=== PATIENT | female | born 1940 | race Caucasian/White ===

== ENCOUNTER 2020-04-23 06:41 | Emergency (ER) | payer MEDICARE, OTHER ==
[~2020-04-23] VITALS: Ht 396.2 cm; Wt 84.1 kg
[2020-04-23 07:59] LABS: HEMOGLOBIN 13.6 g/dl (12.0-16.0); IMMATURE GRANULOCYTES 0.4 % (0.0-5.0); MEAN CELL VOLUME 93.9 fL CALC (80.0-100.0); MEAN CORPUSCULAR HGB 29.7 pG CALC (26.0-32.0); MEAN CORPUSCULAR HGB CONC 31.6 g/dL CAL (32.0-36.0); NEUT# 6.78 thou/uL (2.00-7.15); RED BLOOD COUNT 4.58 mill/uL (4.20-5.60); RED CELL DISTRI WIDTH 14.9 % (11.5-15.5)
[2020-04-23 08:05] LABS: URINE BILIRUBIN - DIPSTICK NEGATIVE (NEGATIVE); URINE BLOOD DIPSTICK NEGATIVE (NEGATIVE); URINE COLOR YELLOW; URINE GLUCOSE - DIPSTICK NEGATIVE (NEGATIVE); URINE KETONE NEGATIVE (NEGATIVE); URINE LEUK ESTERASE NEGATIVE (NEGATIVE); URINE PH 6.5 (4.5-8.0); URINE PROTEIN - DIPSTICK NEGATIVE (NEG-TRACE); URINE UROBILINOGEN - DIPSTICK 0.2 E.U./dL (0.2)
[2020-04-23 08:12] LABS: URINE EPITHELIAL CELLS FEW EPI/hpf (0-FEW); URINE NITRITE - DIPSTICK POSITIVE (Negative); URINE WBC 0-2 WBC/hpf (0-5)
[2020-04-23 08:13] LABS: URINE BACTERIA MODERATE hpf
[2020-04-23 08:16] LABS: ALBUMIN 3.9 g/dL (3.2-5.0); ALKALINE PHOSPHATASE 46 u/l (38-126); ANION GAP 11 (6-22 (CALC)); BILIRUBIN, TOTAL 1.5 mg/dL (0.0-1.4); BUN 10 mg/dL (8-23); BUN/CREATININE RATIO 10 (12-20 (CALC)); CARBON DIOXIDE 28 mmol/l (22-30); CHLORIDE 104 mmol/l (95-108); GFR 54 ML/MIN (>=60 (CALC)); GFR FOR AFR.AMER. > 60 ML/MIN (>=60 (CALC)); LIPASE 49 u/l (23-300); POTASSIUM 3.7 mmol/l (3.5-5.1); SGOT/AST 21 u/l (9-36); SODIUM 140 mmol/l (137-146); TOTAL PROTEIN 6.6 g/dL (6.3-8.2)
[2020-04-23 08:28] LABS: MYOGLOBIN 51 ng/mL (0 - 62)
[2020-04-23] MEDS ORDERED: CIPROFLOXACN500 MG PO ×2 (08:33→09:04)
[2020-04-23] MEDS ORDERED: METRONIDAZOL500 MG PO ×2 (08:33→09:04)
[2020-04-23 08:59] VITALS: BP 166/70
[2020-04-25] MEDS ORDERED: CEPHALEXIN500 M1 PO (09:26)
== END 2020-04-23 09:20 | disposition home or self-care (01) ==
LOC: ED 06:41
PROVIDERS: Emergency Medicine
DX: K57.32 Diverticulitis of large intestine without perforation or abscess without bleeding (principal); J44.9 Chronic obstructive pulmonary disease, unspecified; Z88.1 Allergy status to other antibiotic agents; Z88.0 Allergy status to penicillin; Z88.2 Allergy status to sulfonamides; Z20.822 Contact with and (suspected) exposure to COVID-19

== ENCOUNTER 2020-05-01 14:17 | Emergency (ER) | payer MEDICARE, OTHER ==
[~2020-05-01] VITALS: Ht 175.3 cm; Wt 80.0 kg
[~2020-05-01 14:17] MED LIST: CEPHALEXIN500 M1 PO; CIPROFLOXACN500 MG PO; METRONIDAZOL500 MG PO
[2020-05-01 15:37] LABS: HEMATOCRIT 43.6 % (37.0-47.0); HEMOGLOBIN 13.8 g/dl (12.0-16.0); IMMATURE GRANULOCYTES 0.5 % (0.0-5.0); MEAN CORPUSCULAR HGB 29.7 pG CALC (26.0-32.0); MEAN CORPUSCULAR HGB CONC 31.7 g/dL CAL (32.0-36.0); NEUT# 5.74 thou/uL (2.00-7.15); RED BLOOD COUNT 4.64 mill/uL (4.20-5.60); RED CELL DISTRI WIDTH 14.9 % (11.5-15.5)
[2020-05-01 15:55] LABS: ALKALINE PHOSPHATASE 43 u/l (38-126); AMYLASE 56 u/l (30-110); ANION GAP 13 (6-22 (CALC)); BUN 8 mg/dL (8-23); BUN/CREATININE RATIO 9 (12-20 (CALC)); CARBON DIOXIDE 26 mmol/l (22-30); CHLORIDE 103 mmol/l (95-108); GFR 54 ML/MIN (>=60 (CALC)); GFR FOR AFR.AMER. > 60 ML/MIN (>=60 (CALC)); LIPASE 49 u/l (23-300); SGOT/AST 24 u/l (9-36); SODIUM 138 mmol/l (137-146); TOTAL PROTEIN 6.8 g/dL (6.3-8.2)
[2020-05-01 16:20] LABS: URINE BILIRUBIN - DIPSTICK NEGATIVE (NEGATIVE); URINE BLOOD DIPSTICK NEGATIVE (NEGATIVE); URINE COLOR YELLOW; URINE GLUCOSE - DIPSTICK NEGATIVE (NEGATIVE); URINE KETONE NEGATIVE (NEGATIVE); URINE NITRITE - DIPSTICK NEGATIVE (Negative); URINE PROTEIN - DIPSTICK NEGATIVE (NEG-TRACE); URINE UROBILINOGEN - DIPSTICK 0.2 E.U./dL (0.2)
[2020-05-01 16:22] LABS: URINE LEUK ESTERASE SMALL (NEGATIVE)
[2020-05-01 16:34] LABS: URINE RBC 0-2 RBC/hpf (0-5); URINE SQUAMOUS EPITHELIAL CELL FEW EPI/hpf (0-FEW)
[2020-05-01] MEDS ORDERED: OMEPRAZOLE DR40 MG PO (18:22)
[2020-05-01] MEDS ORDERED: SYNTHROID75 MCG PO (18:22)
[2020-05-01] MEDS ORDERED: PREDNISONE5 MG PO (18:23)
[2020-05-01] MEDS ORDERED: VITAMIN B COMPL1 TAB (18:30)
[2020-05-01] MEDS ORDERED: VITAMIN D2000 UNI2 PO (18:30)
[2020-05-01] MEDS ORDERED: CALCIUM280 MG (18:31)
[2020-05-01] MEDS ORDERED: DIFLUCAN150 MG PO (18:42)
[2020-05-01 18:51] VITALS: BP 142/50
--- NOTE | 2020-05-04 09:27 | NUR ---
FINAL BLOOD CX RESULTS SHOW S EPI IN 1 OF 4 BOTTLES. RESULTS CALLED TO DR LANGLEY, LIKELY A CONTAMINANT, NO CHANGES WARRANTED
== END 2020-05-01 18:50 | disposition home or self-care (01) ==
LOC: ED 14:17
DX: B37.3 Candidiasis of vulva and vagina (principal); R19.7 Diarrhea, unspecified; E86.0 Dehydration; M06.9 Rheumatoid arthritis, unspecified; J44.9 Chronic obstructive pulmonary disease, unspecified